=== PATIENT | female | born 1965 | race Caucasian/White ===

== ENCOUNTER 2024-01-22 15:28 | Emergency (ER) | payer MEDICAID ==
[~2024-01-22] VITALS: Ht 170.2 cm; Wt 55.0 kg
[2024-01-22 15:31] VITALS: O2SAT 97
[2024-01-22] MEDS: HYDROCODONE/ACETAMINOPHEN 5/325MG TABLET PO ONE (16:41)
[2024-01-22] MEDS ORDERED: NAPR-1176 MT (17:24)
[2024-01-22] MEDS ORDERED: LIDO700A15 TP (17:24)
[2024-01-22 17:44] VITALS: BP 164/99; PULSE 81; RESP 18; TEMP 36.55848; O2SAT 96
== END 2024-01-22 18:37 | disposition home or self-care (01) ==
LOC: ER 15:28
DX: M16.11 Unilateral primary osteoarthritis, right hip (principal); Z88.2 Allergy status to sulfonamides
CPT/HCPCS: 73502; 99283

== ENCOUNTER 2024-02-04 14:07 | Emergency (ER) | payer MEDICAID ==
[~2024-02-04] VITALS: Ht 160 cm; Wt 52.0 kg
[~2024-02-04 14:07] MED LIST: LIDO700A15 TP; NAPR-1176 MT
[2024-02-04 14:15] VITALS: O2SAT 100
[2024-02-04] MEDS ORDERED: CYCL10TA21 MT (17:44)
[2024-02-04] MEDS ORDERED: NAPR220C61 MT (17:44)
[2024-02-04] MEDS: DEXAMETHASONE 10 MG/ML VIAL PO ONE (18:44)
[2024-02-04] MEDS: CYCLOBENZAPRINE 10MG TABLET PO ONE (18:45)
[2024-02-04] MEDS: KETOROLAC 30MG/ML VIAL IM ONE (18:45)
[2024-02-04 18:52] VITALS: BP 145/104; PULSE 103; RESP 18; TEMP 37.16964; O2SAT 99
== END 2024-02-04 18:53 | disposition home or self-care (01) ==
LOC: ER 14:07
DX: G89.29 Other chronic pain (principal); M54.50 Low back pain, unspecified; Z88.2 Allergy status to sulfonamides; Z79.899 Other long term (current) drug therapy
CPT/HCPCS: 99283; 96372; J1100; J1885

== ENCOUNTER 2024-08-06 20:55 | Emergency (ER) | payer MEDICAID ==
[~2024-08-06] VITALS: Ht 160 cm; Wt 45.0 kg
[~2024-08-06 20:55] MED LIST changes: +CYCL10TA21 MT; +LIDO-53 TP; -LIDO700A15 TP; +NAPR220C61 MT
[2024-08-06 21:12] VITALS: O2SAT 100
[2024-08-06] MEDS: GABAPENTIN 300MG CAPSULE PO SCH (23:00)
[2024-08-06] MEDS: KETOROLAC 30MG/ML VIAL IM ONE (23:41)
[2024-08-06] MEDS: GABAPENTIN 300MG CAPSULE PO ONE (23:41)
[2024-08-06] MEDS: ACETAMINOPHEN 500MG TABLET PO ONE (23:41)
[2024-08-07] MEDS ORDERED: KETO10TA2 MT (00:03)
[2024-08-07 00:17] VITALS: BP 126/70; PULSE 91; RESP 18; TEMP 36.8; O2SAT 98
== END 2024-08-07 00:23 | disposition home or self-care (01) ==
LOC: ER 20:55
DX: M16.11 Unilateral primary osteoarthritis, right hip (principal); M54.31 Sciatica, right side; Z88.2 Allergy status to sulfonamides; Z79.899 Other long term (current) drug therapy
CPT/HCPCS: 99283; 96372; J1885

== ENCOUNTER 2024-10-01 21:55 | Inpatient (IN) | payer MEDICAID, OTHER ==
[~2024-10-01] VITALS: Ht 157.5 cm; Wt 47.2 kg
[~2024-10-01 21:55] MED LIST changes: +KETO10TA2 MT
[2024-10-01 22:33] VITALS: O2SAT 98
[2024-10-01 23:39] LABS: BASOPHILS % 0.6 % (0.0-2.0); EOSINOPHILS % 3.7 % (0.0-5.0); HEMATOCRIT. 37.1 % (36.0-48.0); HEMOGLOBIN. 12.5 g/dL (12.0-16.0); LYMPHOCYTES % 36.4 % (20.0-50.0); MEAN PLATELET VOLUME 7.6 fl (7.4-10.4); MONOCYTES % 9.1 % (2.0-8.0); NEUTROPHILS % 50.2 % (40.0-76.0); PLATELET 210 x1000/uL (130-400); RED BLOOD CELL COUNT 4.12 mill/uL (4.2-5.4); RED CELL DISTRIBUTION WIDTH 13.4 % (11.6-14.6)
[2024-10-01 23:54] LABS: INR 1.0
[2024-10-01 23:57] LABS: CREATININE 1.1 mg/dL (0.6-1.0); ETHANOL BLOOD < 10 mg/dL (<10); UREA NITROGEN BLOOD 17 mg/dL (9-23)
[2024-10-01 23:59] LABS: ASPARTATE AMINOTRANSFERASE 22 IU/L (<34); BILIRUBIN DIRECT < 0.1 mg/dL (<=3.0); BILIRUBIN TOTAL 0.2 mg/dL (0.1-1.0); PROTEIN TOTAL 6.4 g/dL (6.0-8.3)
[2024-10-02 00:11] LABS: *AMPHETAMINES SCREEN URINE NEGATIVE (NEGATIVE); *BARBITURATES SCREEN URINE NEGATIVE (NEGATIVE); *BENZODIAZEPINES SCREEN URINE NEGATIVE (NEGATIVE)
[2024-10-02 00:12] LABS: *COCAINE SCREEN URINE NEGATIVE (NEGATIVE); CANNABINOID URINE SCREEN PRESUMPTIVE POSITIVE (NEGATIVE); ECSTASY MDMA SCREEN URINE NEGATIVE (NEGATIVE); METHADONE URINE SCREEN NEGATIVE (NEGATIVE); OPIATES URINE SCREEN PRESUMPTIVE POSITIVE (NEGATIVE); PHENCYCLIDINE URINE SCREEN NEGATIVE (NEGATIVE)
[2024-10-02] MEDS ORDERED: IPRATROPIUM/ALBUTEROL 0.5-3(2.5)MG/3ML NEB HHN PRN (03:00)
[2024-10-02] MEDS ORDERED: ACETAMINOPHEN 325MG TABLET PO PRN ×2 (03:00)
[2024-10-02] MEDS ORDERED: CLONIDINE 0.1MG TABLET PO PRN (03:00)
[2024-10-02] MEDS ORDERED: GUAIFENESIN 200MG/10ML SUGAR FREE UDC PO PRN (03:00)
[2024-10-02] MEDS ORDERED: DOCUSATE SODIUM 100MG CAPSULE PO PRN (03:00)
[2024-10-02] MEDS ORDERED: LORAZEPAM 2MG/ML UD SYRINGE IV PRN (03:00)
[2024-10-02] MEDS ORDERED: ONDANSETRON HCL 4MG/2ML INJ IV PRN (03:00)
[2024-10-02] MEDS ORDERED: NALOXONE HCL 0.4MG/ML VIAL IV PRN (03:30)
[2024-10-02] MEDS: GABAPENTIN 300MG CAPSULE PO SCH (03:46)
[2024-10-02] MEDS: LEVETIRACETAM 500MG PREMIX 100 ML IV SCH (03:46)
[2024-10-02] MEDS: HYDROCODONE/ACETAMINOPHEN 5/325MG TABLET PO PRN (03:49)
[2024-10-02 04:00] VITALS: BP 142/100; PULSE 80; RESP 18; TEMP 36.4; O2SAT 94
[2024-10-02 05:15] VITALS: BP 142/100; PULSE 80; RESP 18; TEMP 36.418
[2024-10-02] MEDS: LOSARTAN 25 MG TABLET PO SCH (07:44)
[2024-10-02 08:00] VITALS: BP 136/95; PULSE 78; RESP 18; TEMP 36.6; O2SAT 96
[2024-10-02] MEDS: PANTOPRAZOLE SODIUM 40 MG/VIAL IV SCH (09:13)
[2024-10-02] MEDS: ENOXAPARIN 40MG/0.4ML SYR SUBCUT SCH (09:14)
[2024-10-02] MEDS: QUETIAPINE FUMARATE 50MG TABLET PO SCH (09:14)
[2024-10-02] MEDS: MULTIVITAMINS,THER W-MINERALS TABLET PO SCH (09:15)
[2024-10-02] MEDS: SERTRALINE HCL 50MG TABLET PO SCH (09:16)
[2024-10-02 12:00] VITALS: BP 139/85; PULSE 77; RESP 18; TEMP 36.4; O2SAT 96
[2024-10-02] MEDS ORDERED: LEVE500T19 MT (12:15)
[2024-10-02] MEDS ORDERED: TOPUD PO (12:15)
[2024-10-02] MEDS ORDERED: QUET50TA PO (12:15)
[2024-10-02] MEDS ORDERED: LOSA25TA26 PO ×2 (12:15→12:34)
[2024-10-02] MEDS ORDERED: MIRT-89 PO (12:15)
[2024-10-02] MEDS ORDERED: SERT50TA PO (12:15)
[2024-10-02 15:07] VITALS: BP 139/77; PULSE 77; RESP 18; TEMP 97.6
[2024-10-02] MEDS ORDERED: GABA-290 MT (16:12)
[2024-10-02] MEDS ORDERED: MIRTAZAPINE 15MG TABLET PO SCH (21:00)
== END 2024-10-02 17:40 | disposition home or self-care (01) | DRG 53 ==
LOC: ER 21:55 → 5WST 10-02 01:02 → EDBEDREQ 10-02 01:06 → EDBEDREQTM 10-02 01:06 → EDBEDREQDT 10-02 01:06 → ENRESERV 10-02 02:53 → 5WST 10-02 03:22
PROVIDERS: ADMIT Hospitalist; ATTEND Hospitalist
PROC: GZ56ZZZ Individual Psychotherapy, Supportive (ICD-10-PCS; principal; 2024-10-02)
DX: G40.409 Other generalized epilepsy and epileptic syndromes, not intractable, without status epilepticus (principal); F12.90 Cannabis use, unspecified, uncomplicated; F31.9 Bipolar disorder, unspecified; M16.11 Unilateral primary osteoarthritis, right hip; Z96.643 Presence of artificial hip joint, bilateral; G89.29 Other chronic pain; F41.9 Anxiety disorder, unspecified; Z88.2 Allergy status to sulfonamides; Z91.148 Patient's other noncompliance with medication regimen for other reason
CPT/HCPCS: 36415; 71045; 80048; 80076; 80305; 80320; 83605; 83735; 85025; 93005; 99285; J1650; J1953; J2470; G0480

== ENCOUNTER 2024-11-06 13:07 | Emergency (ER) | payer MEDICAID ==
[~2024-11-06] VITALS: Ht 167.6 cm; Wt 50.0 kg
[~2024-11-06 13:07] MED LIST changes: +GABA-290 MT; -KETO10TA2 MT; +LEVE500T19 MT; +LOSA25TA26 PO; +MIRT-89 PO; -NAPR220C61 MT; +QUET50TA PO; +SERT50TA PO; +TOPUD PO
[2024-11-06 13:12] VITALS: O2SAT 97
[2024-11-06] MEDS: LORAZEPAM 0.5MG TABLET PO ONE (13:55)
[2024-11-06 14:20] LABS: BASOPHILS % 0.8 % (0.0-2.0); EOSINOPHILS % 1.3 % (0.0-5.0); HEMATOCRIT. 36.2 % (36.0-48.0); HEMOGLOBIN. 12.2 g/dL (12.0-16.0); LYMPHOCYTES % 19.2 % (20.0-50.0); MEAN PLATELET VOLUME 8.1 fl (7.4-10.4); MONOCYTES % 13.9 % (2.0-8.0); NEUTROPHILS % 64.8 % (40.0-76.0); PLATELET 235 x1000/uL (130-400); RED BLOOD CELL COUNT 4.05 mill/uL (4.2-5.4); RED CELL DISTRIBUTION WIDTH 14.0 % (11.6-14.6)
[2024-11-06 14:26] LABS: CLARITY URINE CLEAR (CLEAR); COLOR URINE DARK YELLOW (YELLOW); GLUCOSE URINE NEGATIVE (NEGATIVE); KETONES URINE TRACE (NEGATIVE); LEUKOCYTE ESTERASE URINE NEGATIVE (NEGATIVE); NITRITE URINE NEGATIVE (NEGATIVE); OCCULT BLOOD URINE NEGATIVE (NEGATIVE); PH URINE 7.5 (4.5-8.0); PROTEIN URINE NEGATIVE (NEGATIVE); SPECIFIC GRAVITY URINE 1.024 (1.005-1.030); UROBILINOGEN URINE 1.0 E.U./dL (0.2-1.0)
[2024-11-06 14:33] LABS: CREATININE 0.7 mg/dL (0.6-1.0)
[2024-11-06 14:34] LABS: UREA NITROGEN BLOOD 16 mg/dL (9-23)
[2024-11-06 14:40] LABS: *AMPHETAMINES SCREEN URINE NEGATIVE (NEGATIVE); *BARBITURATES SCREEN URINE NEGATIVE (NEGATIVE); *BENZODIAZEPINES SCREEN URINE PRESUMPTIVE POSITIVE (NEGATIVE); *COCAINE SCREEN URINE NEGATIVE (NEGATIVE); CANNABINOID URINE SCREEN PRESUMPTIVE POSITIVE (NEGATIVE); ECSTASY MDMA SCREEN URINE NEGATIVE (NEGATIVE); METHADONE URINE SCREEN NEGATIVE (NEGATIVE); OPIATES URINE SCREEN NEGATIVE (NEGATIVE); PHENCYCLIDINE URINE SCREEN NEGATIVE (NEGATIVE)
[2024-11-06] MEDS: ACETAMINOPHEN 325MG TABLET PO ONE (18:41)
[2024-11-06] MEDS: SERTRALINE HCL 100MG TABLET PO STA (23:21)
[2024-11-07] MEDS: LEVETIRACETAM 500MG TABLET PO STA (00:14)
[2024-11-07] MEDS: GABAPENTIN 300MG CAPSULE PO SCH (00:14)
[2024-11-07] MEDS: QUETIAPINE FUMARATE 50MG TABLET PO STA (00:14)
[2024-11-07] MEDS: LORAZEPAM 0.5MG TABLET PO ONE (10:30)
[2024-11-07] MEDS: ACETAMINOPHEN 325MG TABLET PO ONE (17:30)
[2024-11-08] MEDS: ACETAMINOPHEN 650MG/20.3ML UDC PO ONE (00:19)
[2024-11-08 01:22] VITALS: BP 121/74; PULSE 76; RESP 18; TEMP 36.4; O2SAT 99
== END 2024-11-08 01:50 ==
LOC: ER 13:07
DX: F22 Delusional disorders (principal); M25.551 Pain in right hip; M25.561 Pain in right knee; F31.9 Bipolar disorder, unspecified; R51.9 Headache, unspecified; Z20.822 Contact with and (suspected) exposure to COVID-19; Z79.899 Other long term (current) drug therapy; Z88.2 Allergy status to sulfonamides
CPT/HCPCS: 80305; 80048; 81003; 80307; 80329; 80320; 85025; 36415; 73502; 73562; 70450; 99285; 87426; Z7610; G0480